=== PATIENT | female | born 1960 | race African-American/Black ===

== ENCOUNTER 2021-05-29 10:35 | Outpatient (CLI) | payer OTHER, SELFPAY | END 2021-05-29 10:36 | disposition home or self-care (01) | LOC: ANHAUDIO 10:36 | DX: F20.9 Schizophrenia, unspecified (principal) | CPT/HCPCS: 92557; 92567 ==

== ENCOUNTER 2022-03-19 17:10 | Emergency (ER) | payer OTHER, SELFPAY ==
[2022-03-19 17:11] VITALS: BP 146/70; PULSE 74; RESP 16; O2SAT 98
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
--- NOTE | 2022-03-19 18:12 | PC.NURSE ---
[facility] reports [facility] do not have transport to take pt back to [place].
[2022-03-19 18:29] VITALS: BP 132/70; PULSE 74; RESP 16; TEMP 36.8; O2SAT 98
--- NOTE | 2022-03-19 20:35 | PC.NURSE ---
EMS to transport back to [place].
== END 2022-03-19 20:35 ==
PROVIDERS: Emergency Provider Family Medicine
DX: Z04.89 Encounter for examination and observation for other specified reasons (principal); Y04.2XXA Assault by strike against or bumped into by another person, initial encounter
CPT/HCPCS: 99281

== ENCOUNTER 2022-08-15 09:17 | Outpatient (CLI) | payer OTHER, SELFPAY ==
--- NOTE | ~2022-08-15 | MM_ITS ---
EXAMINATION: MM screening adrianna BI w sweetie HISTORY: Screening mammogram TECHNIQUE: Craniocaudal and mediolateral oblique 3-D tomosynthesis images were obtained and synthetic 2-D images were generated. CAD analysis was submitted and interpreted. COMPARISON: No prior mammogram is available for comparison at this institution. BREAST PARENCHYMAL COMPOSITION: There are scattered areas of fibroglandular density. FINDINGS: There is no evidence of suspicious mass, calcification, or architectural distortion to sugg est malignancy in either breast. There has been no suspicious interval change. IMPRESSION: 1. No mammographic evidence of malignancy. 2. Recommend routine screening mammography in one year. BI-RADS Category 1: Negative Reviewed, dictated and finalized at location A.
== END 2022-08-15 09:18 | disposition home or self-care (01) ==
LOC: ANHIMG 09:20
DX: Z12.31 Encounter for screening mammogram for malignant neoplasm of breast (principal)
CPT/HCPCS: 77063; 77067

== ENCOUNTER 2022-09-26 15:23 | Outpatient (CLI) | payer OTHER, SELFPAY ==
--- NOTE | ~2022-09-26 | DEXA_ITS ---
Bone Density Report Name: JOSÉ MIGUEL CHEW Age: 61 Sex: Female Ethnicity: White Date of : 1960 Indication: postmenopausal; screening for osteoporosis; Referring Provider: DEON, VAZQUEZ Stearns Study: Bone densitometry was performed. Exam Date: September 26, 2022 Accession number: [id number] Bone Density: Region BMD T-score Z-score Classification AP Spine(L1-L4) 0.805 -2.2 -0.7 Osteopenia Femoral Neck (Left) 0.795 -0.5 0.9 Normal Total Hip (Left) 0.932 -0.1 1.0 Normal Femoral Neck (Right) 0.814 -0.3 1.0 Normal Total Hip (Right) 0.930 -0.1 0.9 Normal Total Hip Mean 0.931 -0.1 1.0 Normal World Health Organization criteria for BMD impression classify patients as: Normal (T-score at or above -1.0), Osteopenia (T-score between -1.0 and -2.5), or Osteoporosis (T-score at or below -2.5). 10-year Fracture Risk(1): Major Osteoporotic Fracture 6.2% Hip Fracture 0.4% Reported Risk Factors: [place] (), Neck BMD=0.795, BMI=35.5, smoking (1) FRAX(R) Version 3.08. Fracture probability calculated for an untreated patient. Fracture probability may be lower if the patient has received treatment. Clinical Information Provided by Patient: Smokes Has used the following medications: Vitamin D Menopause Age: 50 Drinks caffeinated beverages Onset of menses at age 12 Number of children 2 Impression: The patient has low bone mass, based on the Total Spine T-score. The patient has an estimated ten-year risk of hip fracture of 0.4% and an estimated ten-year risk of major fracture of 6.2%, based on the WHO FRAX algorithm. The patient has risk factors, including: smoking. Discussion: BONE DENSITY IS LOW AT ONE OR MORE SKELETAL SITES. This patient's lowest T-score is low at one or more skeletal sites. It meets the World Health Organization's (WHO) criteria for ?low bone mass? (T-score between -1.0 and -2.5). The patient's 10-year risk of fracture as calculated by FRAX is less than the threshold where pharmacological therapy is recommended by the National Osteoporosis Foundation (NOF). However, all treatment decisions require clinical judgment and consideration of individual patient factors, including patient preferences, comorbidities, previous drug use, risk factors not captured in the FRAX model (e.g., frailty, falls, vitamin D deficiency, increased bone turnover, interval significant decline in bone density) and possible under or overestimation of fracture risk by FRAX. The patient should follow a healthful lifestyle (good nutrition with adequate calcium and vitamin D, and appropriate weight-bearing exercise). Follow-Up: Consider repeating this study in 2 to 3 years to reassess this patient's status, or sooner if there is some new clinical indication. Reported by: SUSAN on 09/26/2022
== END 2022-09-26 15:24 | disposition home or self-care (01) ==
LOC: ANHIMG 15:25
PROVIDERS: Visit Provider Nurse Practitioner Obstetrics & Gynecology
DX: Z78.0 Asymptomatic menopausal state (principal); M85.88 Other specified disorders of bone density and structure, other site
CPT/HCPCS: 77080

== ENCOUNTER 2023-12-05 10:35 | Outpatient (CLI) | payer OTHER, SELFPAY ==
--- NOTE | ~2023-12-05 | MM_ITS ---
EXAMINATION: MM screening adrianna BI w sweetie HISTORY: Screening mammogram TECHNIQUE: Craniocaudal and mediolateral oblique 3-D tomosynthesis images were obtained and synthetic 2-D images were generated. CAD analysis was submitted and interpreted. COMPARISON: 08/15/2022 BREAST PARENCHYMAL COMPOSITION: The breasts are heterogeneously dense, which may obscure small masses . FINDINGS: No suspicious mass, calcification, or architectural distortion are identified in either jacinto ast to suggest malignancy. There has been no suspicious interval change. IMPRESSION: 1. No mammographic evidence of malignancy. 2. Recommend routine screening mammography in one year. BI-RADS Category 1: Negative Reviewed, dictated and finalized at location A. E PIPE IRRIGATOR
== END 2023-12-05 10:36 | disposition home or self-care (01) ==
LOC: ANHIMG 10:37
PROVIDERS: Visit Provider Nurse Practitioner Obstetrics & Gynecology
DX: Z12.31 Encounter for screening mammogram for malignant neoplasm of breast (principal)
CPT/HCPCS: 77063; 77067

== ENCOUNTER 2025-01-06 14:59 | Outpatient (CLI) | payer OTHER, SELFPAY ==
--- NOTE | ~2025-01-06 | MM_ITS ---
EXAMINATION: MM screening adrianna BI w sweetie HISTORY: Screening TECHNIQUE: Craniocaudal and mediolateral oblique 3-D tomosynthesis images were obtained and synthetic 2-D images were generated. CAD analysis was submitted and interpreted. COMPARISON: Comparison to multiple prior studies sequentially, with oldest reviewed study dated 08/15. BREAST PARENCHYMAL COMPOSITION: Not dense: There are scattered areas of fibroglandular density. FINDINGS: There is no evidence of suspicious mass, calcification, or architectural distortion to sugg est malignancy in either breast. There has been no suspicious interval change. IMPRESSION: 1. No mammographic evidence of malignancy. 2. Recommend routine screening mammography in one year. BI-RADS Category 1: Negative Reviewed, dictated and finalized at location [facility]
--- OUTSIDE RECORDS SUMMARY | 2025-01-06 15:07 | XMS_ITS | Referral Summary ---
Author Organization [facility] Address [address] [place] [address] Care Team Providers Care Fluorescent Lighting Model Maker Name Role Phone Gerald Johnson MD Primary Care Provider [phone] Source Comments [facility],non-[facility] Affiliates and Associated Physician Practices is amultiple site organization consisting of ambulatory clinics and hospital sitesin [place], [place], [place] and [place]. This disclosure is being madepursuant to the Care Everywhere program and may not contain all information available regarding this patient. Last updated 18.[facility] Allergies Active Allergy Reactions Criticality Noted Date Comments Penicillins Unknown 05/31/2016 Penicillins Unknown 09/04/2022 Medications * Be aware that medications may not be up to date on this document. Alwaysverify current medications with the patient. Medication Sig Dispensed Refills Start Date End Date Status albuterol HFA (PROVENTIL;VENTOLIN ;PROAIR) 108 (90 Base) MCG/ACT inhaler 09/03/2020 Active benztropine (COGENTIN) 1 MG tablet 05/01/2021 Active buPROPion XL 24hr (WELLBUTRIN-XL) 300 MG tablet 05/20/2021 Active famotidine (PEPCID) 20 MG tablet 05/25/2021 Active furosemide (LASIX) 20 MG tablet 12/03/2020 Active gabapentin (NEURONTIN) 300 MG capsule 04/27/2021 Active SILTUSSIN SA 100 MG/5ML syrup 05/09/2021 Active haloperidol decanoate (HALDOL DECANOATE) 100 MG/ML injection 05/24/2021 Active ibuprofen (MOTRIN) 600 MG tablet 04/01/2021 Active melatonin 3 MG tablet 04/29/2021 Active metFORMIN (GLUCOPHAGE) 500 MG tablet Take 500 mg by mouth once daily Active nicotine (NICODERM CQ) 14 MG/24HR patch 02/07/2021 Active oxybutynin (DITROPAN) 5 MG tablet Take 5 mg by mouth 2 times daily Active potassium chloride ER (KLOR-CON M) 20 MEQ tablet 05/22/2021 Active pravastatin (PRAVACHOL) 20 MG tablet Take 20 mg by mouth once daily Active solifenacin (VESICARE) 5 MG tablet 05/25/2021 Active temazepam (RESTORIL) 30 MG capsule Take 30 mg by mouth Activ e SPIRIVA HANDIHALER 18 MCG inhalation capsule 05/20/2021 Active traZODone (DESYREL) 150 MG tablet Take 150 mg by mouth A ctive doxazosin (CARDURA) 1 MG tablet 12/30/2021 Active Cholecalciferol (VITAMIN D3) 1.25 MG (18343 UT) capsule Take 50,000 Units by mouth every 7 days Active Aspirin 81 MG CAPS Active sertraline (ZOLOFT) 100 MG tablet Take 100 mg by mouth once daily Active sodium chloride 1 GM tablet Take 1 g by mouth 3 times daily with meals Active haloperidol (HALDOL) 10 MG tablet 01/31/2022 Active Spacer/Aero-Holding Chambers (AEROCHAMBER PLUS ANGEL-VU) 10/11/2021 Active lisinopril-hydroCHL OROthiazide (PRINZIDE; ZESTORETIC) 20-25 MG tablet 02/01/2022 Active QUEtiapine (SEROQUEL) 300 MG tablet 01/30/2022 Active acetaminophen (TYLENOL) 325 MG tablet Take 650 mg by mouth every 6 hours as needed for Fever or Pain Maximum allowable Acetaminophen amount = 4 Grams (4000 mg) / 24 hours. Active metoprolol succinate XL 24hr (TOPROL XL) 50 MG tablet 06/16/2022 Active prednisoLONE acetate (PRED FORTE) 1 % ophthalmic suspension Place one drop in the right eye three times each day for 1 week, then two times each day for 1 week, then one time each day for 1 week, then STOP 06/18/2022 Active nepafenac (NEVANAC) 0.1 % ophth suspension Continue to place one drop in the right eye four times per day until the bottle runs out 06/18/2022 Active moxifloxacin (VIGAMOX) 0.5 % ophthalmic solution Continue to place one drop in the right eye four times per day until the bottle runs out 06/18/2022 Active haloperidol (Haldol) 10 MG tablet 2 times daily 10/27/2022 Active metoprolol succinate XL 24hr (Toprol XL) 50 MG tablet 2 times daily 10/21/2022 Active gabapentin (Neurontin) 300 MG capsule at bedtime 10/22/2022 Active pravastatin (Pravachol) 20 MG tablet at bedtime 10/25/2022 Active lisinopril-hydroCHL OROthiazide (Prinzide; Zestoretic) 20-25 MG tablet once daily 10/27/2022 Active potassium chloride ER (Klor-Con M) 20 MEQ tablet once daily 10/14/2022 Active QUEtiapine (SEROquel) 100 MG tablet once daily 10/21/2022 Active sertraline (Zoloft) 100 MG tablet once daily 09/14/2022 Active solifenacin (Vesicare) 5 MG tablet once daily 10/25/2022 Active Spiriva HandiHaler 18 MCG inhalation capsule once daily 10/02/2022 Active benztropine (Cogentin) 1 MG tablet once daily 10/20/2022 Active buPROPion XL 24hr (Wellbutrin-XL) 300 MG tablet once daily 10/15/2022 Active doxazosin (Cardura) 2 MG tablet once daily 10/23/2022 Active famotidine (Pepcid) 20 MG tablet once daily 10/14/2022 Active QUEtiapine (SEROquel) 300 MG tablet at bedtime 10/27/2022 Active haloperidol decanoate (Haldol Decanoate) 100 MG/ML injection every 30 days 10/17/2022 Active acetaminophen (Tylenol) 325 MG tablet Take 1 (one) tablet by mouth every 4 hours as needed for Fever or Pain Maximum allowable Acetaminophen amount = 4 Grams (4000 mg) / 24 hours. Active ibuprofen (Motrin) 600 MG tablet Take 1 (one) tablet by mouth every 6 hours as needed for Pain Active aspirin (Aspirin) 81 MG chew tablet Take 1 (one) tablet by mouth once daily Active Cholecalciferol (Vitamin D3) 1.25 MG (38220 UT) TABS Take by mouth every 30 days Active guaiFENesin 100 MG Take by mouth as needed Active melatonin 3 MG tablet Take 1 (one) tablet by mouth at bedtime Active amLODIPine (Norvasc) 5 MG tablet Take 1 (one) tablet by mouth once daily 07/19/2024 Active clindamycin (Cleocin) 300 MG capsule Take 1 (one) capsule by mouth once 01/12/2023 Active doxycycline hyclate (Vibramycin) 100 MG capsule Take 1 (one) capsule by mouth every 12 hours 05/12/2023 Active fluticasone propionate (Flonase) 50 MCG/ACT nasal spray [place] 1 (one) spray into each nostril 2 times daily 04/25/2024 Active varenicline (Chantix Starting Month ) 0.5 MG X 11 & 1 MG X 42 tablets Take by mouth as directed 01/06/2023 Active Active Problems Problem Noted Date Diagnosed Date Glaucoma suspect, both eyes 07/29/2024 Overview (07/29/2024): Patient possibly referred for annual follow-up from comprehensive optometry in our department who saw the patient last year and might have been suspicious for glaucoma based on higher than average cup-to-disc ratio and we are recommending baseline OCT this visit. She was scheduled in the glaucoma clinic where we did note the patient has been in a detention for the past decade approximately for management of mental health issues with presumed schizophrenia. As a result she struggles with accuracy of visual field testing and we will likely base any glaucoma suspicion on optic nerve head appearance and intraocular pressures. Baseline gonioscopy following dilation pseudophakia shows high iris insertion but wide open angle with mild trabecular meshwork pigmentation 360 degrees both eyes. If there is low suspicion of glaucoma after the next follow-up, we will probably discharge from glaucoma and refer back to general ophthalmology or optometry for annual visits. Eric Castro MD 07/29/2024 12:01 PM Neoplasm of uncertain behavior of skin Immunizations Name Administration Dates Next Due INFLUENZA VACCINE 08/28/2022 Social History Tobacco Use Types Packs/Day Years Used Date Smoking Tobacco: Every Day Cigarettes Smokeless Tobacco: Never Tobacco Cessation:Ready to Q uit: Not Asked; Counseling Given: Not Answered Alcohol Use Standard Drinks/Week Comments Not Currently 0 (1 standard drink = 0.6 oz pur e alcohol) Sex and Gender Information Value Date Recorded Sex Assigned at Not on file Gender Identity Not on file Sexual Orientation Not on file Last Filed Vital Signs Vital Sign Reading Time Taken Comments Blood Pressure 166/98 06/10/2022 10:28 AM CDT Pulse 63 06/10/2022 10:36 AM CDT Temperature 36.7 C (98.1 F) 06/10/2022 10:17 AM CDT Respiratory Rate 14 06/10/2022 10:36 AM CDT Oxygen Saturation 98% 06/10/2022 10:36 AM CDT Inhaled Oxygen Concentration - - Weight 94.8 kg (209 lb) 06/10/2022 8:27 AM CDT Height 162.6 cm (5' 4 ) 06/10/2022 8:27 AM CDT Body Mass Index 35.87 06/10/2022 8:27 AM CDT Plan of Treatment Upcoming Encounters Date Type Department Care Team (Late st Contact Info) Description 01/27/2025 10:00 AM CDT Office Visit [facility] - Ophthalmology [address] [place] [id number] Eric Castro MD [address] [place] [phone] Medical Devices Implanted Type Area Automobile Body Repairer Helper Device Identifier Shelf Expiration Date Model / Serial / Lot Lens Iol 0 D +21.5 Tena Mod L Bcnvx - [id number] Implanted:Qty: 1 on 02/13/2022 by Luis Almonte MD at [facility] Left: Eye [employer] 10/14/2026 [id number] / [id number] / Lens Iol 0 D +21.5 Tena +1.5 Cyl Bcnvx - [id number] Implanted:Qty: 1 on 06/10/2022 by Luis Almonte MD at [facility] Right: Eye [employer] 12/30/2026 [id number] / [id number] / Insurance Payer Benefit Plan / Group Subscriber ID Effective Dates Phone Address Type [facility]ICA[place] [id number] 07/28/2023-Pre sent [address] [place] [address] Medicaid Managed Care [facility] [id number] Effective for all dates [address] [place] [address] [place] [facility] [place] [id number] Effective for all dates [address] [place] [address] Medicaid [facility] [id number] Effective for all dates [address] [place] [address] [place] [facility] [place] [id number] Effective for all dates [address] [place] [address] [place] [facility] [place] [id number] Effective for all dates [address] [place] [address] [place] [facility] [place] [id number] Effective for all dates [address] [place] [address] [place] [facility] [place] [id number] Effective for all dates [address] [place] [address] [place] [facility] [place] [id number] Effective for all dates [address] [place] [address] Medicaid [facility] [id number] Effective for all dates [address] [place] [address] Medicaid [facility] [id number] Effective for all dates [address] [place] [address] Medicaid [facility] [id number] Effective for all dates [address] [place] [address] [place] [facility] [place] [id number] Effective for all dates [address] [place] [address] Medicaid [facility] [id number] Effective for all dates [address] [place] [address] Medicaid [facility] [id number] Effective for all dates [address] [place] [address] Medicaid [facility] [id number] Effective for all dates [address] [place] [address] Medicaid [facility] [id number] Effective for all dates [address] [place] [address] Medicaid [facility] [id number] Effective for all dates [address] [place] [address] Medicaid [facility] [id number] Effective for all dates [address] [place] [address] Medicaid [facility] [id number] Effective for all dates [address] [place] [address] Medicaid [facility] [id number] Effective for all dates [address] [place] [address] Medicaid [facility] [id number] Effective for all dates [address] [place] [address] Medicaid [facility] [id number] Effective for all dates [address] [place] [address] Medicaid [facility] [id number] Effective for all dates [address] [place] [address] Medicaid [facility] [id number] Effective for all dates [address] [place] [address] Medicaid [facility] [id number] Effective for all dates [address] [place] [address] Medicaid [facility] [id number] Effective for all dates [address] [place] [address] Medicaid [facility] [id number] Effective for all dates [address] [place] [address] Medicaid [facility] [id number] Effective for all dates [address] [place] [address] Medicaid [facility] [id number] Effective for all dates [address] [place] [address] Medicaid [facility] [id number] Effective for all dates [address] [place] [address] Medicaid [facility] MEDICAID [id number] Effective for all dates [employer] CLAIM[employer] DEPARTMENT [address] [place] [address] Medicaid Managed Care [facility] MEDICAID [id number] Effective for all dates [employer] CLAIM[employer] DEPARTMENT [address] [place] [address] Medicaid Managed Care [facility] MEDICAID [id number] Effective for all dates [employer] CLAIMS DEPARTMENT [address] [place] [address] Medicaid [facility] MEDICAID [id number] Effective for all dates [employer] CLAIMS DEPARTMENT [address] [place] [address] Medicaid Managed Care [facility] MEDICAID [id number] Effective for all dates [employer] CLAIMS DEPARTMENT [address] [place] [address] Medicaid [facility] MEDICAID [id number] Effective for all dates [employer] CLAIMS DEPARTMENT [address] [place] [address] Medicaid Managed Care [facility] MEDICAID [id number] Effective for all dates [employer] CLAIMS DEPARTMENT [address] [place] [address] Medicaid Managed Care [facility] MEDICAID [id number] Effective for all dates ATT[employer] CLAIMS DEPARTMENT [address] [place] [address] Medicaid Managed Care [facility] MEDICAID [id number] Effective for all dates ATT[employer] CLAIMS DEPARTMENT [address] [place] [address] Medicaid Managed Care [facility] MEDICAID [id number] Effective for all dates ATT[employer] CLAIMS DEPARTMENT [address] [place] [address] Medicaid Managed Care [facility] MEDICAID [id number] Effective for all dates ATT[employer] CLAIMS DEPARTMENT [address] [place] [address] Medicaid Managed Care [facility] MEDICAID [id number] Effective for all dates [address] [place] [address] Medicaid Managed Care [facility] MEDICAID [id number] Effective for all dates ATTN CLAIMS DEPARTMENT [address] [place] [address] Medicaid Managed Care Care Teams Fluorescent Lighting Model Maker Relationship Specialty Start Date End Date Gerald Johnson MD [address] [place] [address] PCP - General 05/03/21
--- OUTSIDE RECORDS SUMMARY | 2025-01-06 15:07 | XMS_ITS | Patient Health Summary ---
Author Organization [facility] Address [address] [place] [address] Care Team Providers Care Salon Supervisor Name Role Phone Gerald Johnson MD Primary Care Provider [phone] Note from [facility],non-owned Affiliates and Associated Physician Practices is amultiple site organization consisting of ambulatory clinics and hospital sitesin [place], [place], [place]. This disclosure is being madepursuant to the Care Everywhere program and may not contain all information available regarding this patient. Last updated 18.[facility] Allergies * Penicillins(Unknown) * Penicillins(Unknown) Medications * Be aware that medications may not be up to date on this document. Alwaysverify current medications with the patient. * albuterol HFA (PROVENTIL;VENTOLIN;PROAIR) 108 (90 Base) MCG/ACT inhaler (Started 09/03/2020) * benztropine (COGENTIN) 1 MG tablet(Started 05/01/2021) * buPROPion XL 24hr (WELLBUTRIN-XL) 300 MG tablet(Started 05/20/2021) * famotidine (PEPCID) 20 MG tablet(Started 05/25/2021) * furosemide (LASIX) 20 MG tablet(Started 12/03/2020) * gabapentin (NEURONTIN) 300 MG capsule(Started 04/27/2021) * SILTUSSIN SA 100 MG/5ML syrup(Started 05/09/2021) * haloperidol decanoate (HALDOL DECANOATE) 100 MG/ML injection(Started 05/24/2021) * ibuprofen (MOTRIN) 600 MG tablet(Started 04/01/2021) * melatonin 3 MG tablet(Started 04/29/2021) * metFORMIN (GLUCOPHAGE) 500 MG tablet Take 500 mg by mouth once daily * nicotine (NICODERM CQ) 14 MG/24HR patch(Started 02/07/2021) * oxybutynin (DITROPAN) 5 MG tablet Take 5 mg by mouth 2 times daily * potassium chloride ER (KLOR-CON M) 20 MEQ tablet(Started 05/22/2021) * pravastatin (PRAVACHOL) 20 MG tablet Take 20 mg by mouth once daily * solifenacin (VESICARE) 5 MG tablet(Started 05/25/2021) * temazepam (RESTORIL) 30 MG capsule Take 30 mg by mouth * SPIRIVA HANDIHALER 18 MCG inhalation capsule(Started 05/20/2021) * traZODone (DESYREL) 150 MG tablet Take 150 mg by mouth * doxazosin (CARDURA) 1 MG tablet(Started 12/30/2021) * Cholecalciferol (VITAMIN D3) 1.25 MG (91992 UT) capsule Take 50,000 Units by mouth every 7 days * Aspirin 81 MG CAPS * sertraline (ZOLOFT) 100 MG tablet Take 100 mg by mouth once daily * sodium chloride 1 GM tablet Take 1 g by mouth 3 times daily with meals * haloperidol (HALDOL) 10 MG tablet(Started 01/31/2022) * Spacer/Aero-Holding Chambers (AEROCHAMBER PLUS ANGEL-VU)(Started 10/11/2021) * lisinopril-hydroCHLOROthiazide (PRINZIDE; ZESTORETIC) 20-25 MG tablet(Started 02/01/2022) * QUEtiapine (SEROQUEL) 300 MG tablet(Started 01/30/2022) * acetaminophen (TYLENOL) 325 MG tablet Take 650 mg by mouth every 6 hours as needed for Fever or Pain Maximum allowable Acetaminophen amount = 4 Grams (4000 mg) / 24 hours. * metoprolol succinate XL 24hr (TOPROL XL) 50 MG tablet(Started 06/16/2022) * prednisoLONE acetate (PRED FORTE) 1 % ophthalmic suspension(Started 06/18/2022) Place one drop in the right eye three times each day for 1 week, then two times each day for 1 week, then one time each day for 1 week, then STOP * nepafenac (NEVANAC) 0.1 % ophth suspension(Started 06/18/2022) Continue to place one drop in the right eye four times per day until the bottle runs out * moxifloxacin (VIGAMOX) 0.5 % ophthalmic solution(Started 06/18/2022) Continue to place one drop in the right eye four times per day until the bottle runs out * haloperidol (Haldol) 10 MG tablet(Started 10/27/2022) 2 times daily * metoprolol succinate XL 24hr (Toprol XL) 50 MG tablet(Started 10/21/2022) 2 times daily * gabapentin (Neurontin) 300 MG capsule(Started 10/22/2022) at bedtime * pravastatin (Pravachol) 20 MG tablet(Started 10/25/2022) at bedtime * lisinopril-hydroCHLOROthiazide (Prinzide; Zestoretic) 20-25 MG tablet(Started 10/27/2022) once daily * potassium chloride ER (Klor-Con M) 20 MEQ tablet(Started 10/14/2022) once daily * QUEtiapine (SEROquel) 100 MG tablet(Started 10/21/2022) once daily * sertraline (Zoloft) 100 MG tablet(Started 09/14/2022) once daily * solifenacin (Vesicare) 5 MG tablet(Started 10/25/2022) once daily * Spiriva HandiHaler 18 MCG inhalation capsule(Started 10/02/2022) once daily * benztropine (Cogentin) 1 MG tablet(Started 10/20/2022) once daily * buPROPion XL 24hr (Wellbutrin-XL) 300 MG tablet(Started 10/15/2022) once daily * doxazosin (Cardura) 2 MG tablet(Started 10/23/2022) once daily * famotidine (Pepcid) 20 MG tablet(Started 10/14/2022) once daily * QUEtiapine (SEROquel) 300 MG tablet(Started 10/27/2022) at bedtime * haloperidol decanoate (Haldol Decanoate) 100 MG/ML injection(Started 10/17/2022) every 30 days * acetaminophen (Tylenol) 325 MG tablet Take 1 (one) tablet by mouth every 4 hours as needed for Fever or Pain Maximum allowable Acetaminophen amount = 4 Grams (4000 mg) / 24 hours. * ibuprofen (Motrin) 600 MG tablet Take 1 (one) tablet by mouth every 6 hours as needed for Pain * aspirin (Aspirin) 81 MG chew tablet Take 1 (one) tablet by mouth once daily * Cholecalciferol (Vitamin D3) 1.25 MG (04133 UT) TABS Take by mouth every 30 days * guaiFENesin 100 MG Take by mouth as needed * melatonin 3 MG tablet Take 1 (one) tablet by mouth at bedtime * amLODIPine (Norvasc) 5 MG tablet(Started 07/19/2024) Take 1 (one) tablet by mouth once daily * clindamycin (Cleocin) 300 MG capsule(Started 01/12/2023) Take 1 (one) capsule by mouth once * doxycycline hyclate (Vibramycin) 100 MG capsule(Started 05/12/2023) Take 1 (one) capsule by mouth every 12 hours * fluticasone propionate (Flonase) 50 MCG/ACT nasal spray(Started 04/25/2024) [place] 1 (one) spray into each nostril 2 times daily * varenicline (Chantix Starting ) 0.5 MG X 11 & 1 MG X 42 tablets (Started 01/06/2023) Take by mouth as directed Active Problems Problem Noted Date Diagnosed Date Glaucoma suspect, both eyes 07/29/2024 Neoplasm of uncertain behavior of skin 2 Immunizations * INFLUENZA VACCINE(Given 08/28/2022) Social History Tobacco Use Types Packs/Day Years [...] Mass Index 35.87 06/10/2022 8:27 AM CDT Medical Devices Implanted Type Area Cnc Machine Operator Device Identifier Shelf Expiration Date Model / Serial / Lot Lens Iol 0 D +21.5 Tena Mod L Bcnvx - [id number] Implanted:Qty: 1 on 02/13/2022 by Luis Almonte MD at [facility] Left: Eye [employer] 10/14/2026 [id number] / [id number] / Lens Iol 0 D +21.5 Tena +1.5 Cyl Bcnvx - [id number] Implanted:Qty: 1 on 06/10/2022 by Luis Almonte MD at [facility] Right: Eye [employer] 12/30/2026 [id number] / [id number] / Procedures * CULTURE AEROBIC(Performed 11/11/2022) Performed for Visit for suture removal * FL EXC SKIN BENIG 1.1-2CM TRUNK,ARM,LEG(Performed 10/30/2022) Performed for Neoplasm of uncertain behavior of skin * FL INTMD WND REP TRUNK, ARM,LEG <2.5CM(Performed 10/30/2022) Performed for Neoplasm of uncertain behavior of skin * DERMATOPATHOLOGY(Performed 10/30/2022) Performed for Neoplasm of uncertain behavior of skin * EXTRACTION CATARACT WITH INSERTION LENS(Performed 06/10/2022) Performed for Age-related cataract of both eyes, unspecified age-related cataract type * GLUCOSE - POINT OF CARE(Performed 06/10/2022) * EXTRACTION CATARACT WITH INSERTION LENS(Performed 02/13/2022) Performed for Age-related cataract of both eyes, unspecified age-related cataract type * GLUCOSE - POINT OF CARE(Performed 02/13/2022) * OPH IOL TEST SLU(Performed 05/27/2021) Performed for Blurred vision, bilateral * OPH CORNEAL TOPOGRAPHY TEST SLU(Performed 05/27/2021) Performed for Blurred vision, bilateral Results * (ABNORMAL) CULTURE AEROBIC (11/11/2022 2:40 PM WAITER/WAITRESS SECOND CLASS) Culture (A) [facility] Comment: CULTURE, AEROBIC BACTERIA Micro Number: [id number] Test Status: Final Specimen Source: Skin Specimen Quality: Adequate Result: Light growth of Methicillin resistant Staphylococcus aureus (MRSA) COMMENT: Skin ranjana also present. MRSA INT PIO CIPROFLOXACIN R >=8 CLINDAMYCIN S <=0.25 ERYTHROMYCIN S <=0.25 GENTAMICIN S <=0.5 LEVOFLOXACIN I 4 OXACILLIN R NR 1 TETRACYCLINE S <=1 TRIMETHOPRIM/SULFA S <=10 VANCOMYCIN S 1 S=Susceptible I=Intermediate R=Resistant * = Not Tested NR = Not Reported NN = See Therapy Comments THERAPY COMMENTS Note 1: Oxacillin-resistant staphylococci are resistant to all currently available beta-lactam antimicrobial agents with the possible exception of ceftaroline. Test Performed at: [address] [address] LAUREN NASSAR MD Microbiology TISSUE SPECIMEN FROM SKIN / Unknown 11/11/2022 2:40 PM WAITER/WAITRESS SECOND CLASS 11/12/2022 5:30 AM WAITER/WAITRESS SECOND CLASS Simona Hatch MD LAB - MICROBIOLOGY ORDERABLES [address] [address] * FL INTMD WND REP TRUNK, ARM,LEG <2.5CM, FL EXC SKIN BENIG 1.1-2CM TRUNK,ARM,LEG (10/30/2022 4:46PM WAITER/WAITRESS SECOND CLASS) Narrative Helga Kang MD - 10/30/2022 4:46 PM WAITER/WAITRESS SECOND CLASS Yash Slater MD 10/30/2022 4:50 PM Date of Service: 10/30/22 Surgery: Excision of cutaneous nodule with intermediate repair Tumor Type: neoplasm of uncertain behavior Location: R achilles (R ankle) Lesion Size: 1.2x0.8 cm Level of Defect: adipose Repair size: 1.1cm cm Suture: 4-0 monocryl, 4-0 prolene Primary Surgeon: Pearl Velocity Shooter Surgeon: Nohemy INDICATIONS: The patient was scheduled for excision of a cystic nodule. The risks of bleeding, infection, discomfort, incomplete removal, and scar formation were explained to the patient. All questions were answered. After informed consent, confirmation of site and identity, and appropriate instructions, the patient underwent the procedure as follows: PROCEDURE: The lesion was outlined and measured 1.2x0.8 cm. A narrow ellipse was designed over the lesion to conform to relaxed skin tension lines in an effort to minimize scarring and deformity and include visible puncta. The patient was then positioned on the table. The lesion and surrounding skin were prepped with iodine, draped and anesthetized with lidocaine 1% with 1:100 000 epinephrine. Using a #15 blade the skin was excised along pre-marked lines and the dermis was retracted to visualize deeper tissue. The nodule was dissected from surrounding normal tissue using blunt dissection. The resulting defect extended to fat. Wound margins were undermined to limit functional deformity/impairment of adjacent structures. Bleeding vessels were controlled with monopolar electrodesiccation. space was closed and wound edges were opposed with deep dermal buried vertical mattress sutures. Epidermal approximation was meticulously refined with simple running sutures, resulting in a linear closure with little to no wound tension. Blood loss was estimated to be less than 5 cc. The area was coated with petrolatum and covered with a non-adherent pressure dressing followed by gauze and tape. Postoperative instructions were reviewed per protocol. The patient left alert and fully oriented. Estimated Blood Loss: < 5 cc Complications: none Yash Slater MD U Dermatology Resident, PGY-3 Helga Kang MD PROCEDURE/MINOR SURG ICAL ORDERABLES * DERMATOPATHOLOGY (10/30/2022 12:00 AM WAITER/WAITRESS SECOND CLASS) Case Report Dermatopathology Report Case: [id number] Authorizing Provider: Helga Kang MD Collected: 10/30/2022 12:00 AM Ordering Location: [facility] Received: 10/30/2022 04:37 PM Dermatology Pathologist: Simona Hatch MD Specimen: Skin, right achilles 2 1:28 PM WAITER/WAITRESS SECOND CLASS DERMATOPATHOLOGY LABORATORY Final Diagnosis Specimen A. 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 Other Cyst 2 1:28 PM [facility] DERMATOPATHOLOGY LABORATORY Gross Description Specimen A: Received is one formalin filled container labeled with the patient's name and designated right achilles. The specimen consists of a [id number] piece of skin and it is bisected. Jar 0. 2 1:28 PM [facility] DERMATOPATHOLOGY LABORATORY Microscopic Description Specimen A. SKIN, right achilles: This is a well-circumscribed neoplasm composed of smooth muscle containing numerous vessels. 2 1:28 PM [facility] DERMATOPATHOLOGY LABORATORY Disclaimer An external and internal positive and negative controls are appropriate for the histochemical, immunohistochemical and immunofluorescence stain(s) in this case (if any), except where stated explicitly. The performance characteristics of the stain(s) cited in this report were developed and its performance characteristic determined by the Dermatopathology Laboratory at [facility], directed by Dr. Samara Hurtado. These tests need not be, and therefore are not, approved by the [place] Food and Drug Administration. The tests are used for clinical purposes. Billing Codes Specimen Charges Stain Charges 96642 1 2 1:28 PM [facility] DERMATOPATHOLOGY LABORATORY Embedded Images 2 1:28 PM [facility] DERMATOPATHOLOGY LABORATORY Pathology/Cytolog y TISSUE SPECIMEN FROM SKIN / Unknown 10/30/2022 10/30/2022 4:37 PM WAITER/WAITRESS SECOND CLASS Helga Kang MD LAB - PATHOLOGY/CYTO LOGY ORDERABLES DERMATOPATHOLOGY LABORATORY [facility] - Department of Dermatology [address], [address] [phone] * GLUCOSE - POINT OF CARE (06/10/2022 8:37 AM CDT) Only the most recent of2 resultswithin the time period is included. Glucose WB/POC 99 70 - 115 mg/dL 06/10/2022 8:38 AM CDT [facility] Specimen Type Venous 06/10/2022 8:38 AM CDT [facility] Blood BLOOD SPECIMEN / Unknown 06/10/2022 8:37 AM CDT 06/10/2022 8:38 AM CDT Luis Almonte MD LAB - POINT OF CARE ORDERABLES [facility] [address] [place] [address], [place] [phone] * OPH IOL TEST SLU (05/27/2021 9:11 AM CDT) Anatomical Region Laterality Modality Other 05/27/2021 9:11 AM CDT Luis Almonte MD OPHTHALMOLOGY SERVIC ES ORDERABLES * OPH CORNEAL TOPOGRAPHY TEST SLU (05/27/2021 9:06 AM CDT) Anatomical Region Laterality Modality Other 05/27/2021 9:06 AM CDT Luis Almonte MD OPHTHALMOLOGY SERVIC ES ORDERABLES Care Teams Salon Supervisor Relationship Specialty Start Date End Date Gerald Johnson MD [address] [place] [address] PCP - General 05/03/21
--- OUTSIDE RECORDS SUMMARY | 2025-01-06 15:07 | XMS_ITS | Encounter Summary ---
Author Organization [facility] Address [facility] [place] [address] Care Team Providers Care Patient Registration Manager Name Role Phone Gerald Johnson MD Primary Care Provider [phone] [phone] Encounter Details Date Type Department Care Team (Late Contact Info) Description 01/10/2022 Telephone [facility] [address] [place] [phone] Luis Almonte MD [address] [place] [address] [place] [address] Social History Tobacco Use Types Packs/Day Years Used Date Smoking Tobacco: Every Day Smokeless Tobacco: Never Alcohol Use Standard Drinks/Week Comments Not Currently 0 (1 standard drink = 0.6 oz pur e alcohol) Sex and Gender Information Value Date Recorded Sex Assigned at Not on file Gender Identity Not on file Sexual Orientation Not on file documented as of this encounter Miscellaneous Notes * Telephone Encounter - Ramila Montejo - 01/10/2022 9:07 AM CST Current Provider name:Dr Almonte Reason for call: Pbx Operator called wanted to schedule follow up appt's after surgery Patient Call Back number: [phone] L WELDER documented in this encounter Plan of Treatment Upcoming Encounters Date Type Department Care Team (Late Contact Info) Description 01/27/2025 10:00 AM CDT Office Visit [facility] - Ophthalmology [address] [place] [address] Eric Castro MD [address] [place] [id number] documented as of this encounter Visit Diagnoses Not on filedocumented in this encounter Care Teams Patient Registration Manager Relationship Specialty Start Date End Date Gerald Johnson MD [address] [place] [phone] PCP - General 05/03/21 documented as of this encounter
--- OUTSIDE RECORDS SUMMARY | 2025-01-06 15:07 | XMS_ITS | Clinical Summary ---
Author Organization [facility] Address [address] [place] [address] Care Team Providers Care General Doc Name Role Phone Gerald Johnson MD Primary Care Provider [phone] [phone] Allergies Active Allergy Reactions Criticality Noted Date Comments Penicillins Unknown 05/31/2016 Medications temazepam (RESTORIL) 30 MG Capsule Take 1 Cap by mouth nightly as needed for Sleep. 15 Cap 0 6 Active temazepam (RESTORIL) 30 MG Capsule Take 30 mg by mouth nightly as needed for Sleep. Active amLODIPine (NORVASC) 10 MG Tablet Take 10 mg by mouth daily. Active oxybutynin (DITROPAN) 5 MG Tablet Take 5 mg by mouth 2 times daily. Active carvedilol (COREG) 6.25 MG Tablet Take 6.25 mg by mouth 2 times daily. Active enalapril (VASOTEC) 20 MG Tablet Take 20 mg by mouth 2 times daily. Active hydroCHLOROthi azide 25 MG Tablet Take 25 mg by mouth daily. Active pravastatin (PRAVACHOL) 20 MG Tablet Take 20 mg by mouth daily. Active potassium chloride (MICRO-K) 10 MEQ Capsule CR Take 10 mEq by mouth daily. Active haloperidol decanoate (HALDOL DECANOATE) 50 MG/ML Solution 50 mg by Intramuscular route every 14 days. Active lithium 300 MG Capsule Take 300 mg by mouth 3 times daily (with meals). Active metFORMIN (GLUCOPHAGE) 500 MG Tablet Take 500 mg by mouth daily. Active traZODone (DESYREL) 150 MG Tablet Take 150 mg by mouth nightly. Active haloperidol (HALDOL) 2 MG Tablet Take 1 Tab by mouth every 8 hours. 6 Tab 0 6 Active Immunizations Immunization Administration Dates Next Due Covid-19, Mrna, Lnp-s, Pf, 30 Mcg/0.3 Ml Dose (P fizer) 08/30/2021 Social History Tobacco Use Types Packs/Day Years Used Date Smoking Tobacco: Every Day Cigarettes Alcohol Use Standard Drinks/Week Comments No 0 (1 standard drink = 0.6 oz pur e alcohol) Comments No Sex and Gender Information Value Date Recorded Sex Assigned at Not on file Legal Sex Female 10:38 PM CDT Gender Identity Not on file Sexual Orientation Not on file Last Filed Vital Signs Vital Sign Reading Time Taken Comments Blood Pressure 129/63 07/06/2016 4:43 AM CDT Pulse 77 07/06/2016 4:43 AM CDT Temperature 36.7 C (98 F) 07/06/2016 4:43 AM CDT Respiratory Rate 18 07/06/2016 4:43 AM CDT Oxygen Saturation 97% 07/06/2016 4:43 AM CDT Inhaled Oxygen Concentration - - Weight 72.6 kg (160 lb) 07/06/2016 4:43 AM CDT Height 162.6 cm (5' 4 ) 07/06/2016 4:43 AM CDT Body Mass Index 27.46 07/06/2016 4:43 AM CDT Plan of Treatment Health Maintenance Due Date Last Done Comments Hepatitis C Virus (HCV) Screening 1960 TdaP Immunization 1960 Pap Smear 1981 Cervical Cancer Screening (CCS) 1990 HPV/Cotest 1990 Colonoscopy 2005 Colorectal Cancer Screening 2005 Cologuard 2010 Immunochemical Fecal Occult Blood 2010 Zoster Immunization (1 of 2) 2010 Pneumococcal Immunization (5 0+ years) (2 of 2 - PPSV23) 06/10/2017 06/10/2016 Mammogram 01/21/2018 01/22/2016 Influenza Immunization (#1) 2024 SARS-COV-2 Immunization ( season) 2024 08/30/2021, 12/12/2020, 11/21/2020 Respiratory Syncytial Virus (RSV) Immunization (Adult) (1 - 1-dose 75+ series) 2035 Pneumococcal Immunization Combined Discontinued 06/10/2016 Hepatitis B Immunization Aged Out No longer eligible based on patient's age to complete this topic Meningococcal Immunization (ACWY) Aged Out No longer eligible based on patient's age to complete this topic Rotavirus Immunization Aged Out No lo nger eligible based on patient's age to complete this topic Procedures Procedure Name Priority Date/Time Associated Diagnosis Comments [facility] SCREENING BILATERAL DIGITAL W CAD Routine 01/22/2016 11:55 AM TRADING MANAGER Visit for screening mammogram from Last 3 Months or Most Recently Relevant to Health Maintenance Results * [facility] SCREENING BILATERAL DIGITAL W CAD (01/22/2016 11:55 AM TRADING MANAGER) Anatomical Region Laterality Modality breast Bilateral Mammography 01/22/2016 11:3 2 AM TRADING MANAGER Narrative 01/28/2016 4:48 PM CDT - [facility] SCREENING BILATERAL DIGITAL W CAD BILATERAL DIGITAL SCREENING MAMMOGRAM WITH CAD WITH MEDIOLATERAL OBLIQUE CRANIOCAUDAL: 01/22/2016 The study was acquired using digital technology and interpreted from soft copy. Current study was also evaluated with ICAD version 7.2. CLINICAL: Routine screening. Patient has no complaints. No personal history of cancer. No family history of breast cancer. COMPARISONS: Comparison is made to exams dated: 08/03/2014 and 07/01/2013 [facility]. BREAST TISSUE:There are scattered fibroglandular densities in both breasts. FINDINGS: No significant masses, calcifications, or other findings are seen in either breast. There has been no significant interval change. IMPRESSION: BI-RAD 1 NEGATIVE There is no mammographic evidence of malignancy. A 1 year screening mammogram is recommended. The patient has been or will be contacted. The patient will be entered into a reminder system with a target due date of 1 year for her next screening exam. Electronically signed by: Drew christine/dwayne:01/28/2016 09:08:59 Civil Service Clerk: Rhianna NG)(Farhana), [facility] letter sent: Normal Exam Reading location: [facility] BI-RADS: 1 Negative Procedure Note Drew Crawford MD - 01/28/2016 - [facility] SCREENING BILATERAL DIGITAL W CAD BILATERAL DIGITAL SCREENING MAMMOGRAM WITH CAD WITH MEDIOLATERAL OBLIQUE CRANIOCAUDAL: 01/22/2016 The study was acquired using digital technology and interpreted from soft copy. Current study was also evaluated with ICAD version 7.2. CLINICAL: Routine screening. Patient has no complaints. No personal history of cancer. No family history of breast cancer. COMPARISONS: Comparison is made to exams dated: 08/03/2014 and 07/01/2013 [facility]. BREAST TISSUE:There are scattered fibroglandular densities in both breasts. FINDINGS: No significant masses, calcifications, or other findings are seen in either breast. There has been no significant interval change. IMPRESSION: BI-RAD 1 NEGATIVE There is no mammographic evidence of malignancy. A 1 year screening mammogram is recommended. The patient has been or will be contacted. The patient will be entered into a reminder system with a target due date of 1 year for her next screening exam. Electronically signed by: Drew christine/dwayne:01/28/2016 09:08:59 Civil Service Clerk: Rhianna Agustin RT(R)(M), [facility] letter sent: Normal Exam Reading location: [facility] BI-RADS: 1 Negative Gerald Johnson MD IMG MAMMO ORDERABLES Jacque l Result from Last 3 Months or Most Recently Relevant to Health Maintenance Insurance [employer]ID [employer] Care Teams General Doc Relationship Specialty Start Date End Date Gerald Johnson MD [address] [place] [address] PCP - General Family Medicine 12/12/15
--- OUTSIDE RECORDS SUMMARY | 2025-01-06 15:07 | XMS_ITS | Clinical Summary ---
Author Organization [facility] Address [address] [place] [address] Care Team Providers Care Pm Technician Name Role Phone Gerald Johnson MD Primary Care Provider [phone] Source Comments [facility] and Associated Physician Practices is amultiple site organization consisting of ambulatory clinics and hospital sitesin [place], [place], [place] and [place]. This disclosure is being madepursuant to the Care Everywhere program and may not contain all information available regarding this patient. Last updated 18.[facility] Allergies Active Allergy Reactions Criticality Noted Date [...] 12/30/2021 Active Cholecalciferol (VITAMIN D3) 1.25 MG (74855 UT) capsule Take 50,000 Units by mouth [...] daily Active Cholecalciferol (Vitamin D3) 1.25 MG (61458 UT) TABS Take by mouth every 30 [...] fluticasone propionate (Flonase) 50 MCG/ACT nasal spray [place] 1 (one) spray into each nostril 2 [...] note the patient has been in a long term for the past decade approximately for management [...] Visit [facility] - [facility] [address] [place] [id number] Eric Castro MD [address] [place] [phone] Health Maintenance Due Date Last Done Comments COLOGUARD (AGES 45-75) - COL ON CA SCREENING 1960 COLON MONITORING 1960 COLONOSCOPY - COLON CA SCREENING 1960 CT COLONOGRAPHY - COLON CA SCREENING 1960 Colorectal Cancer Screening 1960 FIT - COLON CA SCREENING 1960 FLEX SIG - COLON CA SCREENING 1960 HIV SCREENING 1975 HEPATITIS C SCREENING 11/27/1978 DTAP/TDAP/TD VACCINES (1 - Tdap) 1979 PNEUMOCOCCAL VACCINE 50+ (1 of 2 - PCV) 1979 ZOSTER VACCINE (1 of 2) 2010 MAMMOGRAM 01/21/2018 01/22/2016, 01/22/2016 COVID-19 VACCINE (2 - 2023-2 5 season) 2024 08/30/2021 INFLUENZA VACCINE (#1) 2024 08/28/2022 DEPRESSION SCREENING 11/16/2024 PAP SMEAR 08/06/2025 08/06/2022 Respiratory Syncytial Virus (RSV) Vaccine Pt: or over 60 yrs (1 - 1-dose 75+ series) 2035 HEPATITIS B VACCINE Aged Out No longe r eligible based on patient's age to complete this topic HIB VACCINE Aged Out No longer eligi ble based on patient's age to complete this topic HPV VACCINE Aged Out No longer eligi ble based on patient's age to complete this topic MENINGOCOCCAL (Group B) VACCINE Aged Out No longer eligible b ased on patient's age to complete this topic MENINGOCOCCAL VACCINE Aged Out No perez martha eligible based on patient's age to complete this topic Medical Devices Implanted Type Area Mainspring Strip Inspector Device Identifier Shelf Expiration Date Model / Serial / Lot Lens Iol 0 D +21.5 Tena Mod L Bcnvx - [id number] Implanted:Qty: 1 on 02/13/2022 by Luis Almonte MD at [facility] Left: Eye [employer] 10/14/2026 [id number] / [id number] / Lens Iol 0 D +21.5 Tena +1.5 Cyl Bcnvx - [id number] Implanted:Qty: 1 on 06/10/2022 by Luis Almonte MD at [facility] Right: Eye [employer] 12/30/2026 [id number] / [id number] / Insurance Payer Benefit Plan / Group Subscriber ID Effective Dates Phone Address Type [facility] [facility] [place] [employer] [facility] [place] [id number] 07/28/2023-Pre sent [address] [place] [address] Medicaid Managed Care [facility] [id number] Effective for all dates [address] [place] [address] [place] [facility] [place] [id number] Effective for all dates [address] [place] [address] Medicaid [facility] [id number] Effective for all dates [address] [place] [address] Medicaid [facility] [id number] Effective for all dates [address] [place] [address] Medicaid [facility] [id number] Effective for all dates [address] [place] [address] Medicaid [facility] [id number] Effective for all dates [address] [place] [address] Medicaid [facility] [id number] Effective for all dates [address] [place] [address] Medicaid [facility] [id number] Effective for all dates [address] [place] [address] Medicaid [facility] [id number] Effective for all dates [address] [place] [address] Medicaid [facility] [id number] Effective for all dates [address] [place] [address] Medicaid [facility] [id number] Effective for all dates [address] [place] [address] Medicaid [facility] [id number] Effective for all dates [address] [place] [address] Medicaid [facility] [id number] Effective for all dates [address] [place] [address] Medicaid [facility] [id number] Effective for all dates [address] [place] [address] Medicaid [facility] [id number] Effective for all dates [address] [place] [address] Medicaid [facility] [id number] Effective for all dates [address] [place] [address] Medicaid [facility] [id number] Effective for all dates [address] [place] [address] Medicaid [facility] [id number] Effective for all dates [address] [place] [address] Medicaid [facility] [id number] Effective for all dates [address] [place] [address] Medicaid [facility] [id number] Effective for all dates [address] [place] [address] Medicaid [facility] [id number] Effective for all dates [address] [place] [address] Medicaid [facility] [id number] Effective for all dates [address] [place] [address] Medicaid [facility] [id number] Effective for all dates [address] [place] [address] Medicaid [facility] [id number] Effective for all dates [address] [place] [address] Medicaid [facility] [id number] Effective for all dates [address] [place] [address] Medicaid [facility] [id number] Effective for all dates [address] [place] [address] Medicaid [facility] [id number] Effective for all dates [address] [place] [address] Medicaid [facility] [id number] Effective for all dates [address] [place] [address] Medicaid [facility] [id number] Effective for all dates [address] [place] [address] Medicaid [facility] [id number] Effective for all dates [address] [place] [address] Medicaid [facility] MEDICAID [id number] Effective for all dates [employer] [address] [place] [address] Medicaid Managed Care [facility] MEDICAID [id number] Effective for all dates [employer] [address] [place] [address] [facility] Care [facility] MEDICAID [id number] Effective for all dates [employer]MENT [address] [place] [address] Medicaid Managed Care [facility] MEDICAID [id number] Effective for all dates [employer]MENT [address] [place] [address] Medicaid Managed Care [facility] MEDICAID [id number] Effective for all dates [employer]MENT [address] [place] [address] Medicaid Managed Care [facility] MEDICAID [id number] Effective for all dates [employer]PARTMENT [address] [place] [address] Medicaid Managed Care [facility] MEDICAID [id number] Effective for all dates [employer]PARTMENT [address] [place] [address] Medicaid Managed Care [facility] MEDICAID [id number] Effective for all dates [employer]PARTMENT [address] [place] [address] Medicaid Managed Care [facility] MEDICAID [id number] Effective for all dates [employer]PARTMENT [address] [place] [address] Medicaid Managed Care [facility] MEDICAID [id number] Effective for all dates [employer]MENT [address] [place] [address] Medicaid Managed Care [facility] MEDICAID [id number] Effective for all dates [employer]PARTMENT [address] [place] [address] Medicaid Managed Care [facility] MEDICAID [id number] Effective for all dates [address] [place] [address] Medicaid Managed Care [facility] MEDICAID [id number] Effective for all dates [employer]MENT [address] [place] [address] Medicaid Managed Care Care Teams Pm Technician Relationship Specialty Start Date End Date Gerald Johnson MD [address] [place] [id number] PCP - General 05/03/21
== END 2025-01-06 15:00 | disposition home or self-care (01) ==
LOC: ANHIMG 15:05
PROVIDERS: Visit Provider Nurse Practitioner Obstetrics & Gynecology
DX: Z12.31 Encounter for screening mammogram for malignant neoplasm of breast (principal)
CPT/HCPCS: 77063; 77067